=== PATIENT | male | born 1970 | race Caucasian/White ===

== ENCOUNTER → 2019-03-25 | Outpatient (CLI) | payer MEDICARE ==
[~2019-03-25] MED LIST: GABAPENTIN; GADOBUTROL 7.5 MMOL/7.5 ML (GADAVIST) VIAL IV ONE; GBPN300C PO; HYDR-34 PO; HYDR-3720 PO; HYDR1CAP2 PO; PAXIL; PHENYTOIN; PHN100C PO; ZYRTEC
--- NOTE | 2019-03-25 10:35 | Diagnostic Imaging Report ---
PROCEDURE: MR imaging of the brain with and without contrast. TECHNIQUE: Multiplanar, multisequence MR imaging of the brain was performed with and without contrast. INDICATION: Brain tumor. COMPARISON: No prior MRI study is available for comparison. Correlation is made with a prior CT of the brain from 09/05/2008. FINDINGS: The ventricular size is normal. There is no midline shift. No diffusion restriction is identified. The normal expected flow-voids within the carotid siphons are seen. No acute intra-axial or extra-axial hemorrhage is detected. 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 There appears to be some minimal contrast enhancement at this location but the lesion is difficult to visualize and accurately measure. The overall size appears to be very similar to the CT study from 10 years earlier. No new enhancing lesion is detected. There is no evidence of hydrocephalus. The corpus callosum is unremarkable. The sella and parasellar structures are unremarkable. 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 No hydrocephalus is detected. No additional lesion is seen. Dictated by: Dictated on workstation # [id number]
== END ==
LOC: RAD 08:34
PROVIDERS: ATTEND Nurse Practitioner Family
DX: D49.6 Neoplasm of unspecified behavior of brain (principal)
CPT/HCPCS: 70553